=== PATIENT | male | born 1990 | race African-American/Black ===

== ENCOUNTER 2016-11-08 04:23 | Emergency (ER) | payer BC ==
[~2016-11-08] VITALS: Ht 175.3 cm; Wt 71.7 kg
[2016-11-08 05:03] LABS: HEMATOCRIT 41.2 % (38.0-50.0); MCH 27.2 PG (29.0-34.0); MCHC 32.3 G/DL (30.0-36.0); MCV 84.3 FL (86-99); MEAN PLAT.VOLUME 10.7 uM^3 (9.0-12.4); PLATELET COUNT 149 K/uL (156-360); RBC DIS.WIDTH-CV 12.8 % (11.8-14.6); RBC DIS.WIDTH-SD 39.1 % (39-53); RED BLOOD COUNT 4.89 M/uL (4.00-5.50); WHITE BLOOD COUNT 5.8 K/uL (4.1-10.2)
[2016-11-08 05:20] LABS: CHLORIDE 106 mEq/L (99-109); POTASSIUM 3.2 mEq/L (3.7-5.4); SODIUM 141 mEq/L (136-147)
[2016-11-08 05:22] LABS: GLUCOSE 87 mg/dL (70-99)
[2016-11-08 05:24] LABS: ANION GAP 12 MEQ/L (2-14); TOTAL BILIRUBIN 0.2 mg/dL (0.0-1.0)
[2016-11-08 05:26] LABS: ALKALINE PHOSPHATASE 55 IU/L (3-129)
[2016-11-08 05:27] LABS: UREA NITROGEN (BUN) 20 mg/dL (9-23)
[2016-11-08 05:28] LABS: GFR ESTIMATE (CALCULATED) > 59 mL/min/
[2016-11-08 05:29] LABS: LIPASE 35 U/L (1.0-51.0)
[2016-11-08 05:31] LABS: TROP-I INTERPRETATION NEGATIVE; TROPONIN-I < 0.01 ng/mL (0.0-0.30)
[2016-11-08] MEDS ORDERED: ZOFRAN ODT4 MG PO (05:36)
[2016-11-08] MEDS ORDERED: ZANTAC150 MG PO (05:36)
[2016-11-08 05:48] VITALS: BP 115/70
== END 2016-11-08 05:48 | disposition home or self-care (01) ==
LOC: EME 04:23
PROVIDERS: Physician Assistant
DX: K29.70 Gastritis, unspecified, without bleeding (principal); E87.6 Hypokalemia; Z87.891 Personal history of nicotine dependence
CPT/HCPCS: 80053; 83690; 84484; 85027; 93005; 99281; 99285; J2270; J2405; J7030